=== PATIENT | male | born 1950 | race Asian ===

== ENCOUNTER → 2022-07-24 | Outpatient (CLI) | payer MEDICARE, OTHER | END | disposition home or self-care (01) | LOC: RADMN 12:06 | PROVIDERS: ATTEND Internal Medicine Pulmonary Disease | DX: I51.7 Cardiomegaly (principal); M47.814 Spondylosis without myelopathy or radiculopathy, thoracic region; J44.1 Chronic obstructive pulmonary disease with (acute) exacerbation; R06.02 Shortness of breath | CPT/HCPCS: 71046 ==

== ENCOUNTER → 2022-07-24 | Outpatient (CLI) | payer MEDICARE, OTHER ==
[~2022-07-24] VITALS: Ht 162.6 cm; Wt 87.3 kg
[2022-07-24 10:57] VITALS: BP 145/81
== END | disposition home or self-care (01) ==
LOC: SRCNTR 10:38
PROVIDERS: ATTEND Internal Medicine Pulmonary Disease
DX: G47.33 Obstructive sleep apnea (adult) (pediatric) (principal); E03.9 Hypothyroidism, unspecified; J44.1 Chronic obstructive pulmonary disease with (acute) exacerbation; I10 Essential (primary) hypertension; M10.9 Gout, unspecified; E11.9 Type 2 diabetes mellitus without complications; Z85.46 Personal history of malignant neoplasm of prostate; Z92.3 Personal history of irradiation
CPT/HCPCS: G0463

== ENCOUNTER → 2022-12-05 | Outpatient (CLI) | payer MEDICARE, OTHER ==
[~2022-12-05] VITALS: Ht 162.6 cm; Wt 85.3 kg
[2022-12-05 13:39] VITALS: BP 119/78
== END | disposition home or self-care (01) ==
LOC: SRCNTR 12:19
PROVIDERS: ATTEND Internal Medicine Pulmonary Disease
DX: J44.1 Chronic obstructive pulmonary disease with (acute) exacerbation (principal); I10 Essential (primary) hypertension; E11.9 Type 2 diabetes mellitus without complications; E03.9 Hypothyroidism, unspecified; G47.33 Obstructive sleep apnea (adult) (pediatric); M10.9 Gout, unspecified; C61 Malignant neoplasm of prostate
CPT/HCPCS: G0463; Z7500

== ENCOUNTER → 2024-11-17 | Outpatient (CLI) | payer MEDICARE, OTHER ==
[~2024-11-17] MED LIST: ALLO-45 PO; ASCO500 PO; ATOR40TA28 PO; CARV25 PO; CHOL200059 PO; CLOP75TA33 PO; DULA0.75 SQ; INDO50CA97 PO; METH-386 PO; TAMS0.4C94 PO; VITA180C2 PO
== END | disposition home or self-care (01) ==
LOC: SRCNTR 10:43
PROVIDERS: ATTEND Internal Medicine Pulmonary Disease
DX: C61 Malignant neoplasm of prostate (principal); E05.90 Thyrotoxicosis, unspecified without thyrotoxic crisis or storm; E11.9 Type 2 diabetes mellitus without complications; G47.33 Obstructive sleep apnea (adult) (pediatric); I11.9 Hypertensive heart disease without heart failure; J44.1 Chronic obstructive pulmonary disease with (acute) exacerbation; M10.9 Gout, unspecified; Z51.0 Encounter for antineoplastic radiation therapy; Z79.02 Long term (current) use of antithrombotics/antiplatelets; Z79.899 Other long term (current) drug therapy; Z82.49 Family history of ischemic heart disease and other diseases of the circulatory system; Z83.3 Family history of diabetes mellitus; Z85.46 Personal history of malignant neoplasm of prostate; Z87.891 Personal history of nicotine dependence; Z88.6 Allergy status to analgesic agent; Z92.3 Personal history of irradiation
CPT/HCPCS: Q3014

== ENCOUNTER → 2025-05-11 | Outpatient (CLI) | payer MEDICARE, OTHER ==
[~2025-05-11] MED LIST changes: -CLOP75TA33 PO; +CLOP75TA83 PO
== END | disposition home or self-care (01) ==
LOC: SRCNTR 11:06
PROVIDERS: ATTEND Internal Medicine Pulmonary Disease
DX: J44.1 Chronic obstructive pulmonary disease with (acute) exacerbation (principal); C61 Malignant neoplasm of prostate; E05.90 Thyrotoxicosis, unspecified without thyrotoxic crisis or storm; E11.9 Type 2 diabetes mellitus without complications; G47.33 Obstructive sleep apnea (adult) (pediatric); I11.9 Hypertensive heart disease without heart failure; M10.9 Gout, unspecified; Z79.02 Long term (current) use of antithrombotics/antiplatelets; Z79.899 Other long term (current) drug therapy; Z82.49 Family history of ischemic heart disease and other diseases of the circulatory system; Z83.3 Family history of diabetes mellitus; Z87.891 Personal history of nicotine dependence; Z88.6 Allergy status to analgesic agent; Z92.3 Personal history of irradiation
CPT/HCPCS: Q3014